=== PATIENT | female | born 2000 | race Two or more races ===

== ENCOUNTER 2023-08-09 03:45 | Emergency (ER) | payer SELFPAY ==
[~2023-08-09] VITALS: Ht 165.1 cm; Wt 82.0 kg
[2023-08-09 03:56] VITALS: BP 135/78; PULSE 73; RESP 18; TEMP 97.8
[2023-08-09] MEDS ORDERED: CEPH500C PO (04:12)
[2023-08-09] MEDS ORDERED: SILV1CRE82 TOP (04:12)
[2023-08-09] MEDS ORDERED: HYDR-4902 PO (04:12)
[2023-08-09] MEDS ORDERED: ceFAZolin IM 1GM/2.5ML STERILE WATER IM ONE (04:15)
[2023-08-09] MEDS: HYDROcodone-ACET 5/325MG TAB PO ONE (04:57)
[2023-08-09] MEDS: cefTRIAXone SOD 1,000 MG VL IM ONE (04:58)
[2023-08-09] MEDS: KETOROLAC TROMETH 60MG/2ML VIAL IM ONE (04:58)
[2023-08-09] MEDS: SILVER SULFADIAZINE 1 % TOPICAL CREAM 50GM TOP ONE (05:08)
[2023-08-09] MEDS: TETANUS-DIPTH-ACEL PERTUSSIS 0.5ML SYR Tdap IM ONE (05:18)
[2023-08-09 05:42] VITALS: O2SAT 96
== END 2023-08-09 06:00 | disposition home or self-care (01) ==
LOC: ER 03:45
DX: T23.252A Burn of second degree of left palm, initial encounter (principal); T23.251A Burn of second degree of right palm, initial encounter; T31.0 Burns involving less than 10% of body surface; Z79.899 Other long term (current) drug therapy; X11.8XXA Contact with other hot tap-water, initial encounter; Y93.G3 Activity, cooking and baking; Y92.89 Other specified places as the place of occurrence of the external cause; Y99.8 Other external cause status
CPT/HCPCS: 16000; 90471; 90715; 96372; 99284; J0696; J1885; J0690